=== PATIENT | female | born 2000 | race American Indian/Alaskan Native ===

== ENCOUNTER 2021-02-22 14:17 | Emergency (ER) | payer MEDICAID ==
[2021-02-22] MEDS ORDERED: ACETAMINOPHEN 325 MG TAB PO ONE (15:24)
--- NOTE | 2021-02-22 15:30 | Emergency Department Report ---
ED HPI - General Chief complaint: Abdominal Pain Stated complaint: BLEEDING (16WKS PREG) Time Seen by Provider: 02/22/21 15:21 Source: patient Mode of arrival: Ambulatory Limitations: No Limitations - History of Present Illness Initial comments: Patient is a 20-year-old female presents emergency room with complaints of abdominal cramping that began today. She states that she has had intermittent vaginal spotting throughout her . She states that when she wiped today she noticed a small amount of bright red blood. She denies any heavy bleeding or passing clots. She states that she is approximately 16 weeks based on her last menstrual cycle. She has not seen an [facility] for this . She denies any fever, nausea, vomiting, diarrhea, back pain, urinary symptoms, abnormal vaginal discharge. She states that she had preeclampsia during her last . No allergies to medications. Last menstrual cycle 10/23/2020. /P: 1/A: 0. She states that her last child is at 3 months secondary to SIDS. - Related Data Allergies Allergy/AdvReac Type Severity Reaction Status Date / Time No Known Allergies Allergy Unverified 02/22/21 14:39 ED Review of Systems ROS: Stated complaint: BLEEDING (16WKS PREG) Other details as noted in HPI Comment: All other systems reviewed and negative ED Physical Exam - General Limitations: No Limitations General appearance: alert, in no apparent distress - Head Head exam: Present: atraumatic, normocephalic - Eye Eye exam: Present: normal appearance - ENT ENT exam: Present: mucous membranes moist - Respiratory Respiratory exam: Present: normal lung sounds bilaterally. Absent: respiratory distress, wheezes, rales, rhonchi, stridor, chest wall tenderness, accessory muscle use, decreased breath sounds, prolonged expiratory - Cardiovascular Cardiovascular Exam: Present: regular rate, normal rhythm, normal heart sounds. Absent: systolic murmur, diastolic murmur, rubs, gallop - GI/Abdominal GI/Abdominal exam: Present: soft, normal bowel sounds. Absent: distended, tenderness, guarding, rebound, rigid - Neurological Exam Neurological exam: Present: alert, oriented X3 - Psychiatric Psychiatric exam: Present: normal affect, normal mood - Skin Skin exam: Present: warm, dry, intact ED Course Vital Signs 02/22/21 15:50 Temperature 98.2 F Pulse Rate 80 Respiratory 16 Rate Blood Pressure 107/64 [Right] O2 Sat by Pulse 100 Oximetry ED Medical Decision Making - Lab Data Result diagrams: 02/22/21 15:34 02/22/21 15:34 Lab Results 02/22/21 02/22/21 02/22/21 Range/Units 15:34 15:34 15:34 WBC 12.3 H (4.5-11.0) K/mm3 RBC 4.23 (3.65-5.03) M/mm3 Hgb 12.8 (10.1-14.3) gm/dl Hct 38.7 (30.3-42.9) % MCV 92 (79-97) fl MCH 30 (28-32) pg MCHC 33 (30-34) % RDW 13.8 (13.2-15.2) % Plt Count 315 (140-440) K/mm3 Sodium 136 L (137-145) mmol/L Potassium 4.5 (3.6-5.0) mmol/L Chloride 103.7 (98-107) mmol/L Carbon Dioxide 23 (22-30) mmol/L Anion Gap 14 mmol/L BUN 10 (7-17) mg/dL Creatinine 0.5 L (0.6-1.2) mg/dL Estimated GFR > 60 ml/min BUN/Creatinine Ratio 20 % Glucose 85 (65-100) mg/dL Calcium 9.2 (8.4-10.2) mg/dL Total Bilirubin < 0.20 (0.1-1.2) mg/dL AST 11 (5-40) units/L ALT 9 (7-56) units/L Alkaline Phosphatase 71 (35-129) units/L Total Protein 6.4 (6.3-8.2) g/dL Albumin 3.9 (3.9-5) g/dL Albumin/Globulin Ratio 1.6 % HCG, Quant 4937 H (0-4) mIU/mL Blood Type 02/22/21 Range/Units 15:34 WBC (4.5-11.0) K/mm3 RBC (3.65-5.03) M/mm3 Hgb (10.1-14.3) gm/dl Hct (30.3-42.9) % MCV (79-97) fl MCH (28-32) pg MCHC (30-34) % RDW (13.2-15.2) % Plt Count (140-440) K/mm3 Sodium (137-145) mmol/L Potassium (3.6-5.0) mmol/L Chloride (98-107) mmol/L Carbon Dioxide (22-30) mmol/L Anion Gap mmol/L BUN (7-17) mg/dL Creatinine (0.6-1.2) mg/dL Estimated GFR ml/min BUN/Creatinine Ratio % Glucose (65-100) mg/dL Calcium (8.4-10.2) mg/dL Total Bilirubin (0.1-1.2) mg/dL AST (5-40) units/L ALT (7-56) units/L Alkaline Phosphatase (35-129) units/L Total Protein (6.3-8.2) g/dL Albumin (3.9-5) g/dL Albumin/Globulin Ratio % HCG, Quant (0-4) mIU/mL Blood Type B POSITIVE - Radiology Data Radiology results: report reviewed Ordering Physician: ORIN ROE Date of Service: 02/22/21 Procedure(s): US OB transvaginal Accession Number(s): [id number] cc: ORIN ROE ULTRASOUND OBSTETRIC COMPLETE INDICATION / CLINICAL INFORMATION: , cramping, spotting. Clinical Gestational Age (GA) in weeks.days: 17.3 TECHNIQUE: Transabdominal and Transvaginal. COMPARISON: None available. FINDINGS: NUMBER: Single PRESENTATION: cephalic PLACENTA: posterior and free of the os. The placenta is low lying. MATERNAL ADNEXA: No significant abnormality. AMNIOTIC FLUID VOLUME: normal AMNIOTIC FLUID INDEX (HERMILA) in cm (if measured): Not measured. ANATOMY: organs (including the bladder, stomach, kidneys, heart, umbilical cord, diaphragm, cord insertion, spine and intracranial structures) are visualized and show no significant abnormality with the following exception(s): Bladder, cervical spine MEASUREMENTS: - Biparietal Diameter = 3.9 cm = 17.6 weeks.days - Head Circumference = 14.7 cm = 17.6 weeks.days - Abdominal Circumference = 12.4 cm = 18.0 weeks.days - Femur Length = 2.6 cm = 17.6 weeks.days - Estimated Weight (in grams, if calculated): 218 - Heart Rate (beats per minute): 138 ADDITIONAL FINDINGS: None. AVERAGE ULTRASOUND AGE (AUA) in weeks.days = 17.6 IMPRESSION: 1. Single intrauterine with AUA of 17.6 weeks.days 2. The placenta low lying but free of the os. Signer Name: Nina Lockett MD Signed: 02/22/2021 6:06 PM Workstation Name: [id number] Transcribed By: SS Dictated By: NINA LOCKETT Electronically Authenticated By: NINA LOCKETT Signed Date/Time: 02/22/211805 DD/ 01 TD/TT: Print - Medical Decision Making Patient is a 20-year-old female presents emergency room with complaints of abdominal cramping that began today. She states that she has had intermittent vaginal spotting throughout her . She states that when she wiped today she noticed a small amount of bright red blood. She denies any heavy bleeding or passing clots. She states that she is approximately 16 weeks based on her last menstrual cycle. She has not seen an [facility] for this . She denies any fever, nausea, vomiting, diarrhea, back pain, urinary symptoms, abnormal vaginal discharge. She states that she had preeclampsia during her last . No allergies to medications. Last menstrual cycle 10/23/2020. /P: 1/A: 0. She states that her last child is at 3 months secondary to SIDS. Vitals are normal. No abdominal tenderness on exam, no guarding, no rebound, no rigidity, normal bowel sounds, no peritoneal signs. Labs are stable. hCG quant is 4937. Patient is B positive. UA is within normal limits. OB ultrasound: 1. Single intrauterine with AUA of 17.6 weeks.days 2. The placenta low lying but free of the os. Patient given Tylenol and cramping improved. Discussed all results with patient answered questions. Discussed the importance of OB follow-up. Advised patient May take Tylenol as needed for any discomfort. Increase your water intake. Please practice pelvic rest. Please take a vitamin pver the counter. Follow- up with [facility]. It is very important that you follow-up to receive your care. Return to emergency room for any worsening symptoms. Critical care attestation.: If time is entered above; I have spent that time in minutes in the direct care of this critically ill patient, excluding procedure time. ED Disposition Clinical Impression: Vaginal spotting Abdominal pain Qualifiers: Abdominal location: lower abdomen, unspecified Qualified Code(s): R10.30 - Lower abdominal pain, unspecified Qualifiers: Weeks of gestation: 17 weeks Qualified Code(s): Z3A.17 - 17 weeks gestation of Disposition: TO HOME OR SELFCARE Is pt being admited?: No Does the pt Need Aspirin: No Condition: Stable Instructions: Vaginal Bleeding During , Second Trimester, [id number], Abdominal Pain (ED) Additional Instructions: May take Tylenol as needed for any discomfort. Increase your water intake. Please practice pelvic rest. Please take a vitamin pver the counter. Follow-up with [facility]. It is very important that you follow-up to receive your care. Return to emergency room for any worsening symptoms. Referrals: [facility] [Provider Group] - 2-3 Days [facility] [Provider Group] - 2-3 Days [facility] [Provider Group] - 2-3 Days Time of Disposition: 18:43 Print Language: UZBEK
[2021-02-22 15:46] LABS: Hematocrit 38.7 % (30.3-42.9); Hemoglobin 12.8 gm/dl (10.1-14.3); Mean Corpuscular HGB Conc 33 % (30-34); Mean Corpuscular Volume 92 fl (79-97); Platelet Count 315 K/mm3 (140-440); Red Blood Count 4.23 M/mm3 (3.65-5.03); Red Cell Distribution Width 13.8 % (13.2-15.2)
[2021-02-22 15:53] VITALS: BP 107/64
[2021-02-22 16:05] LABS: Alanine Aminotransferase 9 units/L (7-56); Albumin 3.9 g/dL (3.9-5); Blood Urea Nitrogen 10 mg/dL (7-17); Calcium 9.2 mg/dL (8.4-10.2); Hemolysis Index 9
[2021-02-22 16:07] LABS: BUN/Creatinine Ratio 20
--- NOTE | 2021-02-22 18:10 | Ultrasound Report ---
ULTRASOUND OBSTETRIC COMPLETE INDICATION / CLINICAL INFORMATION: , cramping, spotting. Clinical Gestational Age (GA) in weeks.days: 17.3 TECHNIQUE: Transabdominal and Transvaginal. COMPARISON: None available. FINDINGS: NUMBER: Single PRESENTATION: cephalic PLACENTA: posterior and free of the os. The placenta is low lying. MATERNAL ADNEXA: No significant abnormality. AMNIOTIC FLUID VOLUME: normal AMNIOTIC FLUID INDEX (HERMILA) in cm (if measured): Not measured. ANATOMY: organs (including the bladder, stomach, kidneys, heart, umbilical cord, diaphragm, cord inserti on, spine and intracranial structures) are visualized and show no significant abnormality with the fo llowing exception(s): Bladder, cervical spine MEASUREMENTS: - Biparietal Diameter = 3.9 cm = 17.6 weeks.days - Head Circumference = 14.7 cm = 17.6 weeks.days - Abdominal Circumference = 12.4 cm = 18.0 weeks.days - Femur Length = 2.6 cm = 17.6 weeks.days - Estimated Weight (in grams, if calculated): 218 - Heart Rate (beats per minute): 138 ADDITIONAL FINDINGS: None. AVERAGE ULTRASOUND AGE (AUA) in weeks.days = 17.6 IMPRESSION: 1. Single intrauterine with AUA of 17.6 weeks.days 2. The placenta low lying but free of the os. Signer Name: George Lockett MD Signed: 02/22/2021 6:06 PM Workstation Name: [id number]
[2021-02-22 18:40] LABS: Bilirubin,Urine NEG (Negative); Blood,Urine SM (Negative); Color,Urine Yellow (Yellow); Mucus,Urine 1+ /HPF; Urobilinogen,Urine < 2.0 mg/dL (<2.0)
[2021-02-22 19:28] LABS: Total Cells Counted 100
[2021-02-22 19:29] LABS: Ovalocytes Rare
[2021-02-22 19:30] LABS: Giant Platelets Rare; Large Platelets Rare; Platelet Estimate Consistent w Auto
== END 2021-02-22 18:53 | disposition home or self-care (01) ==
LOC: ED 14:17
DX: O26.852 Spotting complicating pregnancy, second trimester (principal); Z3A.17 17 weeks gestation of pregnancy
CPT/HCPCS: 36415; 76805; 76817; 80053; 81001; 84702; 85007; 85025; 86900; 86901